=== PATIENT | female | born 1955 | race Caucasian/White ===

== ENCOUNTER 2022-01-20 13:18 | Emergency (ER) | payer OTHER, SELFPAY ==
[2022-01-20 13:36] VITALS: BP 151/92; PULSE 66; RESP 12; TEMP 36.4; O2SAT 100
--- NOTE | 2022-01-20 14:00 | ED.GENADULT ---
HPI - General Adult General Chief complaint: Dizziness Stated complaint: Dizziness, nausea, cold sweat Source: patient Mode of arrival: ambulatory Limitations: no limitations History of Present Illness HPI narrative: Patient presents for evaluation of dizziness that started last night. She indicates she was in her bathroom and turned her head and she experienced a sensation that the room was spinning and felt diaphoretic. Family member assisted her to feel more stable on her feet. They contacted EMS who came to the place of residence. They checked her blood sugar with a reading of 146. EKG was conducted without evidence of ischemic changes per patient report. She went to bed and woke up this morning and had a similar event when turning her head. She denies chest pain, shortness of breath, headache, or other neurological symptoms. She has been off several of her medications as of late as her primary care provider left the practice. She was given a referral for new provider but that provider is not taking patients. At the present time she states that her symptoms are markedly improved from earlier today and last night. Related Data Home Medications Medication Instructions Recorded Confirmed aspirin 81 mg capsule 81 mg PO DAILY 01/20/22 01/20/22 cetirizine 10 mg capsule 10 mg PO DAILY 01/20/22 01/20/22 citalopram 20 mg tablet 20 mg PO DAILY 01/20/22 01/20/22 coenzyme Q10 10 mg tablet 10 mg PO ONCE 01/20/22 01/20/22 empagliflozin 5 mg-metformin 1,000 1 tablet PO BID 01/20/22 01/20/22 mg tablet (Synjardy) ergocalciferol (vitamin D2) 1,250 1,250 mcg PO WEEKLY 01/20/22 01/20/22 mcg (50,000 unit) capsule (Vitamin D2) fenofibrate 150 mg capsule 150 mg PO DAILY 01/20/22 01/20/22 indapamide 2.5 mg tablet 2.5 mg PO DAILY 01/20/22 01/20/22 levothyroxine 112 mcg tablet 112 mcg PO DAILY 01/20/22 01/20/22 niacin 500 mg capsule 500 mg PO DAILY 01/20/22 01/20/22 pitavastatin calcium 4 mg tablet 4 mg PO DAILY 01/20/22 01/20/22 (Livalo) potassium chloride 10 mEq 10 meq PO DAILY 01/20/22 01/20/22 capsule,extended release quinapril 20 mg tablet 20 mg PO DAILY 01/20/22 01/20/22 valacyclovir 1 gram tablet 1,000 mg PO DAILY 01/20/22 01/20/22 verapamil 180 mg tablet,extended 180 mg PO DAILY 01/20/22 01/20/22 release Allergies Allergy/AdvReac Type Severity Reaction Status Date / Time codeine Allergy Swelling Verified 01/20/22 13:48 of Lip/Tongue/Throat Review of Systems Review of Systems: CONSTITUTIONAL: Reports episodes of diaphoresis. Denies fever, chills EYES: Denies visual changes, redness, or discharge. ENT: Denies rhinorrhea, congestion, sore throat, or otalgia. CARDIOVASCULAR: Denies chest pain, palpitations, or edema. RESPIRATORY: Denies cough or dyspnea. GASTROINTESTINAL: Denies abdominal pain, nausea, vomiting, or diarrhea. GENITOURINARY: Denies dysuria or hematuria. SKIN: Denies rash or itching. MUSCULOSKELETAL: Denies back pain, joint pain, or myalgia. NEUROLOGIC: Reports dizziness and intermittent sensation that the room is spinning. Denies headache, numbness, or weakness. PSYCHIATRIC: Denies anxiety or depression. [facility] Past Medical History Medical History (Updated 01/20/22 @ 15:47 by JOANIE Holloway, ) Diabetes Hyperlipidemia Hypertension Hypothyroidism Surgical History Surgical History History of cholecystectomy History of D&C Family History Family History Mother Family history non-contributory Social History Social History Smoking status: Former smoker Substance use: never Living arrangements: with family Gender identity (if verbalized by the patient): Female Sexual Orientation (if Verbalized by the Patient): Straight or Heterosexual Spiritual care concerns: No Exam Narrative:
--- NOTE | 2022-01-20 14:01 | ECG_ITS ---
Measurements Intervals [place] Rate: 81 P: 40 MT: 159 QRS: -22 QRSD: 98 T: 86 QT: 401 QTc: 467 Interpretive Statements SINUS RHYTHM BASELINE ARTIFACT NONSPECIFIC ST & T-WAVE ABNORMALITY BORDERLINE ECG NO PREVIOUS ECG AVAILABLE FOR COMPARISON Electronically Signed On 01-21-2022 12:19:26 CDT by Shawn Pacheco M.D.
[2022-01-20 14:10] VITALS: BP 163/88; PULSE 68
[2022-01-20 14:12] VITALS: BP 160/87; PULSE 70
[2022-01-20 14:14] VITALS: BP 138/92; PULSE 78
[2022-01-20 14:36] LABS: Glucose Point of Care 178 mg/dl (65-105)
[2022-01-20 14:47] VITALS: BP 170/89
[2022-01-20 14:49] VITALS: BP 147/93
--- NOTE | 2022-01-20 14:58 | PC.NURSE ---
1345-- ATTEMPTED TO DO AN EKG ON PATIENT BUT EKG MALFUNCTIONED. BATTERY CHANGE DONE BUT MACHINE CONTINUED TO MALFUNCTION. [facility] NOTIFIED AND SPOKE WITH CHRISTIAN WHO IMMEDIATELY KNEW THE PROBLEM. STATED SHE WOULD BRING US A NEW PIECE FOR THE MACHINE SOMETIME TODAY.
== END 2022-01-20 15:58 | disposition short-term general hospital (02) ==
PROVIDERS: Emergency Provider Nurse Practitioner
DX: R42 Dizziness and giddiness (principal); E11.9 Type 2 diabetes mellitus without complications; E78.5 Hyperlipidemia, unspecified; I10 Essential (primary) hypertension; E03.9 Hypothyroidism, unspecified; Z87.891 Personal history of nicotine dependence
CPT/HCPCS: 81003; 82948; 87086; 87088; 93005; 99213; G0463

== ENCOUNTER 2022-01-20 16:28 | Emergency (ER) | payer OTHER, SELFPAY ==
[2022-01-20] VITALS (13 sets, daily range): BP systolic 140–198; BP diastolic 69–160; PULSE 51–75; RESP 13–20; TEMP 36.4; O2SAT 92–100
--- NOTE | ~2022-01-20 | CT_ITS ---
EXAMINATION: CT brain wo con DATE: 01/20/2022 17:25 INDICATION: Dizziness/weakness, L sided ESTEVEZ, elevated BP . TECHNIQUE: Computed tomography (CT) of the head was performed without intravenous contrast. The mA wa s adjusted according to patient size. Iterative reconstruction technique was employed. The dose-lengt h product was 605.33 mGy-cm. COMPARISON: None FINDINGS: No acute intracranial hemorrhage or extra-axial fluid collection. No hydrocephalus, mass, or herniation. No acute ischemic infarct. Unremarkable dural venous sinus attenuation. No acute osseous abnormality. The aerated spaces are clear. Mild atrophy and chronic white matter change. Atherosclerotic intracranial calcifications. IMPRESSION: No acute intracranial process. Reviewed, dictated and finalized at location K.
--- NOTE | 2022-01-20 16:46 | ECG_ITS ---
Measurements Intervals [place] Rate: 81 P: 40 ND: 159 QRS: -22 QRSD: 98 T: 86 QT: 401 QTc: 467 Interpretive Statements SINUS RHYTHM BASELINE ARTIFACT NONSPECIFIC ST & T-WAVE ABNORMALITY BORDERLINE ECG NO PREVIOUS ECG AVAILABLE FOR COMPARISON Electronically Signed On 01-21-2022 12:19:06 CDT by Shawn Pacheco M.D.
--- NOTE | 2022-01-20 17:02 | ED.DIZZY ---
HPI - Dizziness General Chief Complaint: Dizziness Stated Complaint: Dizzy Time Seen by Provider: 01/20/22 16:50 History of Present Illness HPI Narrative: Patient is a 66-year-old female with a history of hypertension, hypothyroidism, diabetes, here for evaluation of dizziness over the past day and a half. Patient states the dizziness is worse when she turns her head and with position changes, but will occasionally come on when she is at rest. Describes it as a room spinning sensation. Additionally reports a left-sided headache, nausea, and 2 episodes of vomiting earlier today. Patient was sent here from urgent care facility for further evaluation and management today. She does note that she has had sinus congestion, chills, and some bilateral ear pain, right over left over the past 2 weeks . No chest pain, shortness of breath, syncope, leg swelling, cough. She has been out of her medications for several weeks. Related Data Home Medications Medication Instructions Recorded Confirmed aspirin 81 mg capsule 81 mg PO DAILY 01/20/22 01/20/22 cetirizine 10 mg capsule 10 mg PO DAILY 01/20/22 01/20/22 citalopram 20 mg tablet 20 mg PO DAILY 01/20/22 01/20/22 coenzyme Q10 10 mg tablet 10 mg PO ONCE 01/20/22 01/20/22 empagliflozin 5 mg-metformin 1,000 1 tablet PO BID 01/20/22 01/20/22 mg tablet (Synjardy) ergocalciferol (vitamin D2) 1,250 1,250 mcg PO WEEKLY 01/20/22 01/20/22 mcg (50,000 unit) capsule (Vitamin D2) fenofibrate 150 mg capsule 150 mg PO DAILY 01/20/22 01/20/22 indapamide 2.5 mg tablet 2.5 mg PO DAILY 01/20/22 01/20/22 levothyroxine 112 mcg tablet 112 mcg PO DAILY 01/20/22 01/20/22 niacin 500 mg capsule 500 mg PO DAILY 01/20/22 01/20/22 pitavastatin calcium 4 mg tablet 4 mg PO DAILY 01/20/22 01/20/22 (Livalo) potassium chloride 10 mEq 10 meq PO DAILY 01/20/22 01/20/22 capsule,extended release quinapril 20 mg tablet 20 mg PO DAILY 01/20/22 01/20/22 valacyclovir 1 gram tablet 1,000 mg PO DAILY 01/20/22 01/20/22 verapamil 180 mg tablet,extended 180 mg PO DAILY 01/20/22 01/20/22 release Allergies Allergy/AdvReac Type Severity Reaction Status Date / Time codeine Allergy Swelling Verified 01/20/22 16:49 of Lip/Tongue/Throat Review of Systems Review of Systems: Gen: Denies fevers or chills Eyes: Denies eye pain or visual change ENT: reports congestion and bilateral ear pain Respiratory: Denies shortness of breath or cough CV: Denies chest pain or palpitations GI: Reports nausea and vomiting. Denies abdominal pain or diarrhea denies burning, urgency, frequency or hematuria Musculoskeletal: Denies back pain or muscle pain Neuro: Reports dizziness and left-sided headache. Denies numbness, tingling, weakness or focal weakness Skin: Denies rash Except as documented, all other systems reviewed and negative PMFSH Past Medical History Medical History (Updated 01/20/22 @ 20:21 by Sarah Monge PA-C) Diabetes Hyperlipidemia Hypertension Hypothyroidism Surgical History Surgical History History of cholecystectomy History of D&C Family History Family History Mother Family history non-contributory Social History Social History Smoking status: Former smoker Substance use: never Gender identity (if verbalized by the patient): Female Sexual Orientation (if Verbalized by the Patient): Straight or Heterosexual Spiritual care concerns: No Exam Narrative: APPEARANCE: Well appearing, no pain in distress, well-nourished. Head: Normocephalic and atraumatic. EYES: PERRLA/EOMI, conjunctivae clear NOSE: No nasal drainage EARS: External ear normal in appearance. Bilateral TMs clear. THROAT: Mucous membranes are dry. Oropharynx is clear. NECK: Supple. No adenopathy, no masses. RESPIRATORY:
[2022-01-20] MEDS: ONDANSETRON INJ 4 MG/2 ML VIAL IV PUSH (17:07)
[2022-01-20] MEDS: SODIUM CHLORIDE 0.9% IV 1,000 ML 999 ML IV CONT ×2 (17:07→18:49)
[2022-01-20 17:08] LABS: Basophils Absolute Auto 0.1 K/mm3 (0.0-0.1); Basophils Percent Auto 0.8 % (0.2-1.2); Eosinophils Absolute Auto 0.1 K/mm3 (0-0.3); Eosinophils Percent Auto 2.1 % (0-4.4); Hematocrit 46.2 % (37.0-47.0); Hemoglobin 15.8 g/dL (12.0-15.0); Immature Granulocyte Absolute 0.03 K/mm3 (0.00-0.031); Immature Granulocyte Percent A 0.5 % (0-0.5); Lymphocytes Absolute Auto 1.73 K/mm3 (0.9-3.2); Lymphocytes Percent Auto 26.3 % (18.3-44.2); Mean Corpuscular HGB Conc 34.2 g/dl (32-36); Mean Corpuscular Volume 90.8 fl (80-100); Mean Platelet Volume 10.9 fl (7.4-10.4); Monocytes Absolute Auto 0.4 K/mm3 (0.1-0.6); Monocytes Percent Auto 5.5 % (2.6-8.5); Neutrophils Absolute Auto 4.3 K/mm3 (1.3-6.7); Neutrophils Percent Auto 64.8 % (45.5-73.1); Platelet Count Result 201 k/mm3 (150-375); Red Blood Count 5.09 M/mm3 (4.2-5.4); Red Cell Distribution Width 13.9 % (11.5-14.5); White Blood Count 6.6 K/mm3 (4.5-10.0)
[2022-01-20 17:21] LABS: Alanine Aminotransferase 33 U/L (6-35); Albumin Level 5.6 g/dL (3.5-5.1); Alkaline Phosphatase 68 U/L (38-126); Anion Gap 14 mmol/L (8-16); Aspartate Amino Transferase 60 U/L (14-36); Bilirubin,Total 0.9 mg/dL (0.2-1.3); Blood Urea Nitrogen 10 mg/dL (7-17); Calcium 9.9 mg/dL (8.4-10.2); Carbon Dioxide 26 mmol/L (22-30); Chloride 98 mmol/L (98-107); Estimated CRCL calculation 57 ml/min; Estimated Glomerular Filt Rate > 60; Glucose 170 mg/dL (65-110); Potassium 3.7 mmol/L (3.4-5.0); Sodium 138 mmol/L (137-145)
[2022-01-20 17:50] LABS: SARS-CoV-2 RNA PCR Negative
[2022-01-20] MEDS: MECLIZINE HCL 25 MG TABLET PO (18:15)
--- NOTE | 2022-01-20 20:16 | PC.NURSE ---
Pt ambulated with no difficulty EDP notified
== END 2022-01-20 20:52 | disposition home or self-care (01) ==
PROVIDERS: Family Medicine; Physician Assistant; Emergency Provider Emergency Medicine
DX: R42 Dizziness and giddiness (principal); I10 Essential (primary) hypertension; E11.9 Type 2 diabetes mellitus without complications; E78.5 Hyperlipidemia, unspecified; E03.9 Hypothyroidism, unspecified; Z79.82 Long term (current) use of aspirin; Z87.891 Personal history of nicotine dependence; Z79.84 Long term (current) use of oral hypoglycemic drugs
CPT/HCPCS: 36415; 70450; 80053; 85025; 93005; 96361; 96374; 99284; A9270; C9803; J2405; J7030; U0003; U0005

== ENCOUNTER 2022-05-23 13:41 | Outpatient (CLI) | payer MEDICARE, SELFPAY ==
--- NOTE | ~2022-05-23 | MM_ITS ---
EXAMINATION: MM screening socrates BI w rupinder HISTORY: Screening mammogram TECHNIQUE: Craniocaudal and mediolateral oblique 3-D tomosynthesis images were obtained and synthetic 2-D images were generated. CAD analysis was submitted and interpreted. COMPARISON: No prior mammogram is available for comparison at this institution. BREAST PARENCHYMAL COMPOSITION: There are scattered areas of fibroglandular density. FINDINGS: RIGHT BREAST: An asymmetry is present in the far posterior third of the slightly inner breast on the craniocaudal view. LEFT BREAST: No suspicious mass, calcification, or architectural distortion are identified to suggest malignancy. IMPRESSION: 1. Right breast asymmetry which may represent the patient's baseline however no comparison is current ly available. 2. Comparison with prior mammograms is necessary. BI-RADS Category 0: Incomplete: Needs comparison with prior mammograms. Reviewed, dictated and finalized at location A. [facility] [employer] IMPRESSION: 1. Right breast asymmetry which may represent the patient's baseline however no comparison is currently available. 2. Comparison with prior mammograms is necessary. BI-RADS Category 0: Incomplete: Needs comparison with prior mammograms.
== END 2022-05-23 13:42 | disposition home or self-care (01) ==
LOC: ANHIMG 13:44
PROVIDERS: Visit Provider Nurse Practitioner Family
DX: Z12.31 Encounter for screening mammogram for malignant neoplasm of breast (principal); R92.8 Other abnormal and inconclusive findings on diagnostic imaging of breast
CPT/HCPCS: 77063; 77067

== ENCOUNTER 2023-06-05 13:06 | Emergency (ER) | payer MEDICARE, SELFPAY ==
[2023-06-05 13:24] VITALS: BP 121/77; PULSE 105; RESP 20; TEMP 36.8; O2SAT 97
--- NOTE | 2023-06-05 13:44 | ED.GENADULT ---
HPI - General Adult General Chief complaint: Upper Respiratory Infection Stated complaint: Cough Time Seen by Provider: 06/05/23 13:44 Source: patient Mode of arrival: ambulatory Limitations: no limitations History of Present Illness HPI narrative: 68-year-old female presented for complaint of cough over the past few days. She states symptoms started with sinus congestion and drainage, which has now improved. She is taking DayQuil and Robitussin for symptoms. She denies shortness of breath, wheezing, nausea, vomiting, diarrhea, fevers or chills. Related Data Home Medications Medication Instructions Recorded Confirmed cetirizine 10 mg capsule 10 mg PO DAILY 01/20/22 06/05/23 citalopram 20 mg tablet 20 mg PO DAILY 01/20/22 06/05/23 quinapril 20 mg tablet 20 mg PO DAILY 01/20/22 06/05/23 valacyclovir 1 gram tablet 1,000 mg PO DAILY 01/20/22 06/05/23 cholecalciferol (vitamin D3) 125 125 mcg PO DAILY 06/05/23 06/05/23 mcg (5,000 unit) tablet (Vitamin D3) empagliflozin 25 mg tablet 25 mg PO DAILY 06/05/23 06/05/23 (Jardiance) fenofibrate nanocrystallized 145 145 mg PO DAILY 06/05/23 06/05/23 mg tablet levothyroxine 125 mcg tablet 125 mcg PO DAILY 06/05/23 06/05/23 lisinopril 20 mg tablet 20 mg PO DAILY 06/05/23 06/05/23 rosuvastatin 40 mg tablet 40 mg PO DAILY 06/05/23 06/05/23 verapamil 180 mg tablet,extended 180 mg PO DAILY 06/05/23 06/05/23 release Allergies Allergy/AdvReac Type Severity Reaction Status Date / Time codeine Allergy Swelling Verified 06/05/23 13:42 of Lip/Tongue/Throat Review of Systems Review of Systems: CONSTITUTIONAL: Denies body aches, fever, chills, or sweats. EYES: Denies visual changes, redness, or discharge. ENT: Denies rhinorrhea, congestion, sore throat, or otalgia. CARDIOVASCULAR: Denies chest pain, palpitations, or edema. RESPIRATORY: Reports cough, Denies sob, wheezing. GASTROINTESTINAL: Denies abdominal pain, nausea, vomiting, or diarrhea. SKIN: Denies rash, itching, or wounds. MUSCULOSKELETAL: Denies back pain, joint pain, or myalgia. NEUROLOGIC: Denies headache, numbness, tingling, or weakness. All systems reviewed & are unremarkable except as noted in HPI and below PMFSH Past Medical History Medical History Diabetes Hyperlipidemia Hypertension Hypothyroidism Surgical History Surgical History History of cholecystectomy History of D&C Family History Family History Mother Family history non-contributory Social History Social History Smoking status: Former smoker Substance use: never Living arrangements: with family Gender identity (if verbalized by the patient): Female Sexual Orientation (if Verbalized by the Patient): Straight or Heterosexual Spiritual care concerns: No Comments At time of signature, I have reviewed and agree with nursing past medical, surgical, social and family history unless otherwise noted. Please see nursing chart for further information. There is no relevant family history pertinent to the presenting complaint Exam Narrative: GENERAL: Well-appearing, in no acute distress. EYES: EOMI. No redness or drainage. Conjunctivae normal. ENT: Mucous membranes pink and moist. No rhinorrhea. TMs normal bilaterally. Throat normal. Uvula midline. NECK: Normal AROM. Supple. CHEST: No respiratory distress. Lungs clear to all bang. occasional moist nonproductive cough HEART: Regular rate and rhythm. No murmur appreciated. ABDOMEN: Soft, nontender, nondistended, normal active bowel sounds. EXTREMITIES: Normal range of motion. No edema. SKIN: Warm, dry, no rash. Capillary refill normal. Normal skin turgor. NEURO: Alert and oriented x3. Gait steady. PSYCH: Normal affect. Cour
== END 2023-06-05 13:55 | disposition home or self-care (01) ==
PROVIDERS: Emergency Provider Nurse Practitioner Family; PCP Nurse Practitioner Family
DX: J40 Bronchitis, not specified as acute or chronic (principal); E11.9 Type 2 diabetes mellitus without complications; E78.5 Hyperlipidemia, unspecified; I10 Essential (primary) hypertension; E03.9 Hypothyroidism, unspecified; Z79.899 Other long term (current) drug therapy; Z87.891 Personal history of nicotine dependence
CPT/HCPCS: 99213; G0463

== ENCOUNTER 2023-07-01 12:35 | Outpatient (CLI) | payer MEDICARE, SELFPAY ==
--- NOTE | ~2023-07-01 | DEXA_ITS ---
Bone Density Report Name: STEPHANIE YEPEZ Age: 68 Sex: Female Ethnicity: White Date of : 1955 Indication: postmenopausal; screening for osteoporosis; Referring Provider: ELIDA, NELSON Study: Bone densitometry was performed. Exam Date: July 01, 2023 Accession number: [id number] Bone Density: Region BMD T-score Z-score Classification AP Spine(L1-L4) 1.053 0.1 1.9 Normal Femoral Neck (Left) 0.748 -0.9 0.7 Normal Total Hip (Left) 0.991 0.4 1.7 Normal Femoral Neck (Right) 0.810 -0.3 1.2 Normal Total Hip (Right) 0.922 -0.2 1.1 Normal Total Hip Mean 0.956 0.1 1.4 Normal World Health Organization criteria for BMD impression classify patients as: Normal (T-score at or above -1.0), Osteopenia (T-score between -1.0 and -2.5), or Osteoporosis (T-score at or below -2.5). 10-year Fracture Risk: FRAX not reported because: All T-scores for Spine Total, Hip Total, Femoral Neck at or above -1.0 Clinical Information Provided by Patient: Has used the following medications: Vitamin D, Calcium Patient maximum height was 63 Menopause Age: 50 Drinks caffeinated beverages Onset of menses at age 14 Number of children 3 Impression: The patient has normal bone mass. Discussion: BONE DENSITY IS ABOVE THE MINIMUM DESIRABLE LEVEL AT ALL SKELETAL SITES TESTED. This patient?s bone mineral density is above the minimum desirable level (T-score -1.0 or better) at all sites measured. The patient should follow a healthful lifestyle (good nutrition with adequate calcium and vitamin D, and appropriate weight-bearing exercise). Follow-Up: Consider repeating this study in 5 years or sooner if there is some new clinical indication. Reported by: [facility] on 07/01/2023 12:54:00 PM. Reviewed, dictated and finalized at location [facility]
== END 2023-07-01 12:36 | disposition home or self-care (01) ==
PROVIDERS: PCP Nurse Practitioner Family; Visit Provider Nurse Practitioner Family
DX: Z78.0 Asymptomatic menopausal state (principal)
CPT/HCPCS: 77080

== ENCOUNTER 2024-04-20 07:56 | Outpatient (CLI) | payer MEDICARE, SELFPAY ==
--- NOTE | ~2024-04-20 | MM_ITS ---
EXAMINATION: MM screening socrates BI w rupinder HISTORY: Screening mammogram TECHNIQUE: Craniocaudal and mediolateral oblique 3-D tomosynthesis images were obtained and synthetic 2-D images were generated. CAD analysis was submitted and interpreted. COMPARISON: 05/23/2022, 09/06/2019, 08/12/2018 BREAST PARENCHYMAL COMPOSITION:Not Dense. The breasts are almost entirely fatty FINDINGS: No suspicious mass, calcification, or architectural distortion are identified in either dagoberto ast to suggest malignancy. There has been no suspicious interval change. IMPRESSION: No mammographic evidence of malignancy. Recommend routine screening mammography in one year. BI-RADS Category 1: Negative Reviewed, dictated and finalized at location .
== END 2024-04-20 07:57 | disposition home or self-care (01) ==
LOC: ANHIMG 07:57
PROVIDERS: PCP Nurse Practitioner Family; Visit Provider Obstetrics & Gynecology
DX: Z12.31 Encounter for screening mammogram for malignant neoplasm of breast (principal)
CPT/HCPCS: 77063; 77067